=== PATIENT | female | born 1955 | race Caucasian/White ===

== ENCOUNTER 2025-08-07 11:00 | Outpatient (RCR) | payer MEDICARE, BC, SELFPAY | END 2025-08-13 13:02 | disposition home or self-care (01) | PROVIDERS: Visit Provider Orthopaedic Surgery | DX: M62.469 Contracture of muscle, unspecified lower leg (principal); M25.671 Stiffness of right ankle, not elsewhere classified; Z51.89 Encounter for other specified aftercare | CPT/HCPCS: 97110; 97112; 97161 ==